=== PATIENT | male | born 1940 | race Caucasian/White ===

== ENCOUNTER 2019-12-01 09:25 | Outpatient (CLI) | payer MEDICARE, BC ==
--- NOTE | 2019-12-01 11:50 | ULT ---
HEPATIC ULTRASOUND: Date: 12/01/2019 HISTORY: Cirrhosis. FINDINGS: Real-time imaging of the liver shows heterogeneous appearance of the liver which measures approximate ly 18.0 cm in length. No focal masses. The gallbladder is normal. Common duct is in the 5.0 mm range. Negative ultrasound Mao's sign. DOPPLER EVALUATION WITH SPECTRAL ANALYSIS: Normal flow patterns are shown within the liver. The spleen is enlarged at 17.5 cm. IMPRESSION: 1. Heterogeneous liver echotexture without focal mass. 2. Splenomegaly. POS: [facility]
== END 2019-12-01 09:26 | disposition home or self-care (01) ==
LOC: BICULT 09:25
PROVIDERS: ATTEND Internal Medicine
DX: K74.60 Unspecified cirrhosis of liver (principal); R16.1 Splenomegaly, not elsewhere classified
CPT/HCPCS: 76705

== ENCOUNTER 2020-05-09 14:33 | Inpatient (IN) | payer MEDICARE, BC, OTHER ==
[~2020-05-09 14:33] MED LIST: EPHEDRINE 25 MG/5 ML SYRINGE ONE; Iopamidol-370 76% 500 ML 1 ML ONE; Lidocaine 1% PF 5 ML VIAL ONE; PHENYLEPHRINE-NS 100 MCG/ML 10 ML SYRINGE ONE; PROPOFOL 200 MG/20 ML VIAL ONE; Succinylcholine Chloride 20 MG/ML 10 ml SYRINGE FS ONE
[2020-05-09] MEDS ORDERED: Ondansetron PF 4 MG/2 ML Vial ONE (15:04)
[2020-05-09 15:18] LABS: #Basophils 0.1 thou/uL (0.0-0.2); #Eosinphils 0.2 thou/uL (0.0-0.7); #Lymphocytes 0.9 thou/uL (1.20-3.40); #Monocytes 0.5 thou/uL (0.11-0.59); #Neutrophils 6.1 thou/uL (1.40-6.50); %Basophils 0.9 % (0.0-1.0); %Eosinophils 2.4 % (0.0-10.0); %Lymphocytes 11.8 % (21.0-51.0); %Monocytes 6.1 % (0.0-10.0); %Neutrophils 78.9 % (42.0-75.0); INR-International Normal Ratio 1.5; Mean Corpuscular HGB CONC 34.2 g/dL (32.0-36.0); Mean Corpuscular Hemoglobin 35.9 pg (27.0-31.0); Mean Platelet Volume 9.1 fL (7.4-10.4); PTT 29.7 sec (22.9-36.1); Platelet Count 84 thou/uL (130-400); Red Blood Cell (RBC) Count 3.08 mill/uL (4.70-6.10); White Blood Cell (WBC) Count 7.8 thou/uL (4.8-10.8)
[2020-05-09 15:25] LABS: MDiff Complete? YES; Macrocytosis SLIGHT = 6-15 cells (100X) (0-5/hpf); Platelet Morphology Comment Appears Decreased; Polychromasia SLIGHT = 2-3 cells (100X) (0-2/hpf)
[2020-05-09 15:26] LABS: Bilirubin Negative (Negative); Blood, Urine Negative (Negative); Clarity Clear (Clear); Glucose, Urine (Dipstick) Normal (Negative); Ketone, Urine Negative (Negative); Leukocyte Negative Leu/uL (Negative); Nitrite Negative (Negative); Protein, Urine (Dipstick) Negative (Neg-Trace); Specific Gravity, Urine 1.026 (1.002-1.036); Urobilinogen Normal mg/dL (Less than 2); pH, Urine 5.5 (5.0-9.0)
[2020-05-09] MEDS ORDERED: Pantoprazole 40 MG VIAL ONE (15:30)
[2020-05-09 15:35] LABS: ALT (SGPT) 29 U/L (8-55); AST (SGOT) 34 U/L (5-34); Albumin 3.3 g/dL (3.4-4.8); Alkaline Phosphatase 71 U/L (40-110); Anion Gap 15 mmol/L (10-20); BUN (Urea Nitrogen) 62 mg/dL (8.4-25.7); Bilirubin, Total 1.5 mg/dL (0.2-1.2); Calc. Creatinine Clearance 0 mL/min (70-130); Calcium 8.6 mg/dL (7.8-10.44); Carbon Dioxide 21 mmol/L (23-31); Chloride 112 mmol/L (98-107); Estimated GFR-MDRD 66; Globulin 2.6 g/dL (2.4-3.5); Glucose 112 mg/dL (83-110); Potassium 4.8 mmol/L (3.5-5.1); Protein, Total 5.9 g/dL (5.8-8.1); Sodium 143 mmol/L (136-145)
--- NOTE | 2020-05-09 15:35 | RAD ---
Exam: Chest one view HISTORY:Blood in stool. Vomiting. Hypotension Comparison: None FINDINGS: Cardiac silhouette: Normal Aorta: Atherosclerosis Pulmonary vessels: Normal Costophrenic angles: Clear LUNGS: No masses or consolidation. Patchy interstitial opacities are presumed be chronic. Pneumothorax: None Osseous abnormalities: None IMPRESSION: 1. Atherosclerosis 2. No acute cardiopulmonary process.
[2020-05-09] MEDS ORDERED: Pantoprazole 80 MG, Admixture Fee 1 EACH in Sodium Chloride 0.9% 100 ML IVPB SCH (15:45)
--- NOTE | 2020-05-09 16:13 | CT ---
EXAM: CT ABDOMEN AND PELVIS HISTORY: Blood in stools. Vomiting. COMPARISON: Stone protocol CT 03/15/2008 Procedure: Multiple contiguous axial images were obtained and a CT of the abdomen and pelvis with IV contrast. C oronal reformats were performed. FINDINGS: Lower Chest: within normal limits. Vessels: Normal caliber aorta. No periaortic stranding Heart: Normal heart size. No significant pericardial Abdomen: Portal vein:Patent. There does appear to be edema along the proximal portal vein as well as the proxi mal superior mesenteric vein as it joins to form the portal vein. Gallbladder: Mild pericholecystic fluid in the gallbladder fundus Liver: Nodularity liver, compatible with cirrhotic change. There are no enhancing masses within the l iver. Pancreas: within normal limits. Spleen: within normal limits. Adrenals: Appropriate attenuation and enhancement of the right adrenal gland. There is a hyperdense m ass associated with the left adrenal gland which is developed since the previous examination. Characterization is limited and incomplete. Hyperdense mass measuring 1.8 x 1.7 cm. Kidneys: Symmetric enhancement. Bilaterally no obstructive uropathy. Nonobstructing calculus in the l eft renal pelvis measures 0.6 cm. Peritoneum: There is nonspecific stranding of the abdominal mesentery suggesting mesenteric edema. Th ere is hypervascularity within the mesentery. The central abdominal mesentery also demonstrates stranding. Positive mesenteric lymphadenitis is raised. The possibility of vascular congestion in the mesentery cannot be excluded. There are extensive gastroesophageal and splenic varices. Bowel: Limited evaluation by the lack of oral contrast. There is fluid and ingested material in the g astric cardia. There is mild fullness of the gastric pylorus. Duodenum and small bowel loops have an overall normal caliber. Normal ileocecal junction. Normal caliber appendix. Colon is decompressed. Scattered diverticulosis. No evidence of diverticulitis. Mucosal thickening involving the distal descending colon and sigmoid colon is felt to be due to inadequate distention.. Mesentery and Retroperitoneum: No enlarged mesenteric or retroperitoneal lymph nodes. Abdominal Wall: within normal limits. Pelvis: Reproductive Organs: Mild enlarged prostate gland. Mass effect upon the floor of the urinary bladder. Pelvis: No mass, lymphadenopathy, free air or free fluid. Bladder: No intravesicular calculi . Bones: Multilevel degenerative changes of the lumbar spine. IMPRESSION: 1. Cirrhosis. 2. Gastroesophageal varices. 3. Stranding of the abdominal mesentery with increased vascularity. Correlate for mesenteric lymphade nitis/venous congestion. 4. Nonspecific edema involving the gastric pylorus. 5. Nonspecific fluid in the gallbladder fossa, at the level of the gallbladder fundus 6. Diverticulosis, without evidence of diverticulitis. Mucosal thickening of the left hemicolon is pr esumed to be due to inadequate distention. The appropriate clinical setting, mucosal-based pathology cannot be excluded. Nonemergent colonoscopy if clinically warranted. 7. Enhancing mass involving the left adrenal gland, incompletely evaluated. Transcribed Date/Time: 05/09/2020 4:20 PM
[2020-05-09] MEDS ORDERED: Octreotide Acetate 100 MCG/ML VIAL ONE (18:31)
[2020-05-09] MEDS ORDERED: cefTRIAXone\\ROCEPHIN 1 GM VIAL ONE (18:32)
[2020-05-09] MEDS ORDERED: Octreotide Acetate 1,250 MCG in Sodium Chloride 0.9% 250 ML 250 ML IVPB SCH (19:00)
[2020-05-09] MEDS ORDERED: Fentanyl 100 MCG/2 ML VIAL ONE (19:12)
[2020-05-09 20:09] LABS: SARS-CoV-2 NAA Rapid Test Not Detected (NotDetected)
--- NOTE | 2020-05-09 20:14 | CON ---
DATE OF CONSULTATION: 05/09/2020 REASON FOR CONSULTATION: Hematemesis, melena. CONSULTING PROVIDER: Holly Salvador NP. HISTORY OF PRESENT ILLNESS: The patient is a 79-year-old male with past medical history of osteoarthritis, hypertension, nephrolithiasis, and cirrhosis of the liver with no previous complications, presenting with complaints of hematemesis and melena. He states that he was in his usual state of health until approximately 2 days ago after eating breakfast, felt general GI discomfort all day. At 3:00 a.m. the following morning, he had nausea and vomiting of a small amount of dark colored phlegm, but continued to have the GI discomfort. Later that morning, he did have the sensation that he needed to have a bowel movement, that awoke him from sleep, at which point he had a dark/black liquid stool that recurred approximately 2 to 3 hours later. Later on that morning, he then experienced hematemesis, characterized as bright red blood and that ultimately brought him into the ER for further evaluation. When evaluated in the ER, he was noted to be hypotensive and tachycardic, but responded favorably to infusion of 1 L of IV fluid with return of his blood pressure to more normal. Upon speaking with the patient today, he denies any new medications nor has he taken any NSAIDs within the last 6 months. He also adds that this has never happened before, and currently denies any fevers, chills, hematochezia, dysphagia, odynophagia, constipation, weight loss, lower extremity edema, ascites, encephalopathy, or jaundice. REVIEW OF SYSTEMS: A 10-category review of systems was obtained with all responses negative except for the pertinent positives as listed in HPI. PAST MEDICAL HISTORY: As per HPI. PAST SURGICAL HISTORY: 1. Abdominal wall hernia repair. 2. Liver biopsy. 3. Colonoscopy. FAMILY HISTORY: Mother diagnosed with colon cancer. SOCIAL HISTORY: Denies any tobacco, alcohol, or illicit drug use. OUTPATIENT MEDICATIONS: 1. Doxazosin 4 mg daily. 2. Lisinopril and hydrochlorothiazide 20 mg/12.5 mg daily. 3. Niacinamide 500 mg daily. ALLERGIES: NO KNOWN DRUG ALLERGIES. PHYSICAL EXAMINATION: VITAL SIGNS: Temperature not recorded, pulse 118, blood pressure 128/65, respiratory rate 14, and saturating 100% on room air. GENERAL: The patient was lying in bed, in no acute distress. Alert and oriented x4. HEENT: Normocephalic and atraumatic. Neck is supple. No JVD or scleral icterus noted. CARDIOVASCULAR: Tachycardic rate, but regular rhythm. No discernable murmurs, gallops, or rubs. RESPIRATORY: Clear to auscultation bilaterally with no discernable wheezes or rales. ABDOMEN: Normoactive bowel sounds. Soft and nondistended. Mild tenderness to palpation in the right upper quadrant and midepigastric regions. EXTREMITIES: No cyanosis, clubbing, or edema. LABORATORY DATA: CBC with a white blood cell count of 7.8, hemoglobin 11, hematocrit 32.3, and platelets 84. INR 1.5. Chemistry with a sodium of 143, potassium 4.8, chloride 112, CO2 of 21, BUN 62, creatinine 1.08, and glucose 112. AST 34, ALT 29, alkaline phosphatase 71, total bilirubin 1.5, and albumin 3.3. Urinalysis normal. IMAGING DATA: CT of the abdomen and pelvis was obtained on 05/09/2020, which showed some edema along the proximal portal vein as well as the proximal superior mesenteric vein as it joins to form the portal vein. There was some mild pericholecystic fluid in the gallbladder fundus, but no overt evidence of cholecystitis. A nodular liver was also seen, compatible with cirrhotic change, but no enhancing masses within the liver itself. A hyperdense mass measuring 1.8 x 1.7 cm was seen in the left adrenal gland, which has developed since prior examination. There was also nonspecific stranding of the abdominal mesentery, suggesting mesenteric edema and hypervascularity within the mesentery. There were also extensive gastroesophageal and splenic varices noted within the gastric cardia. There was fluid and ingested material seen with mild fullness of the gastric pylorus. Scattered diverticulosis without evidence of diverticulitis was also seen. ASSESSMENT AND PLAN: The patient is a 79-year-old male with past medical history of nephrolithiasis, hypertension, osteoarthritis, and cirrhosis of the liver (previously compensated) presenting with hematemesis and melena, concerning for an upper gastrointestinal bleed. 1. Upper gastrointestinal bleed: The patient is presenting with a history of cirrhosis based on cirrhotic morphology on imaging, thrombocytopenia, splenomegaly, and a FibroSURE with F4 fibrosis. At this time, the most likely etiology for his cirrhosis was nonalcoholic fatty liver disease and had previously had compensated disease at his most recent outpatient clinic with MELD score of 10 and Child-Bustos class A classification in 12/2019. He did undergo liver biopsy around 20 years ago, but unfortunately the liver biopsy results have not been available for review. He has never had an esophagogastroduodenoscopy before and was actually being set up for screening upper endoscopy for screening for varices when COVID-19 hit and was deferred until a later day prior to progressing. However, now the patient is presenting with hematemesis, characterized as bright red blood in addition to melenic type stools, which is concerning for an upper gastrointestinal bleeding process. At this point in time, the differential could include an esophageal varix bleed, esophagitis, gastritis, peptic ulcer disease, arteriovenous malformation, Dieulafoy lesion, and/or gastrointestinal neoplasm (less likely). Recommendations: a. Would continue to trend his hemoglobin and hematocrit and transfuse as necessary to maintain the hemoglobin and hematocrit of 7/21. b. Continue to monitor clinically for signs of active GI bleeding. c. Would place the patient on PPI drip and octreotide drip in light of possible variceal bleeding. d. Would place the patient on ceftriaxone 2 g daily in light of bleeding in a cirrhotic patient. e. Would keep the patient n.p.o. in anticipation of EGD. f. Would plan for EGD later on tonight for further evaluation and further recommendations to follow. 2. Cirrhosis: Again, the patient is presenting with a history of cirrhosis with most likely etiology being nonalcoholic fatty liver disease and previously with compensated disease with a MELD score of 10 and Child-Bustos classification A. right upper quadrant ultrasound obtained on 12/01/2019, showed no evidence of hepatoma, and repeat CT scan obtained during this admission also did not show any evidence of hepatocellular carcinoma. His last colonoscopy was performed in 2012 with normal findings per the patient, although the records are unavailable for review with recommendations to repeat in 10 years. Recommendations: a. Would proceed with the workup related to the upper GI bleeding as above. b. The patient will need repeat imaging of the liver in 6 months for screening for HCC. c. Would plan for colonoscopy in 3 years as part of screening for colorectal cancer. d. No acute interventions are indicated at this time. We will continue to follow. Please call with any questions. Job ID: [id number]
[2020-05-09] MEDS ORDERED: Promethazine HCl 25 MG/ML VIAL SLOW IVP PRN (22:05)
[2020-05-09] MEDS ORDERED: Promethazine HCl 25 MG/ML VIAL IM PRN (22:05)
[2020-05-09] MEDS ORDERED: Ondansetron HCl/PF 4 MG/2 ML Vial IVP PRN (22:05)
[2020-05-09] MEDS: Sodium Chloride 0.9% 1,000 ML IV SCH (23:20)
[2020-05-10 00:09] LABS: Band 10 % (5-11); Eosinophils 1 % (0-10); Hemoglobin 9.7 g/dL (14.0-18.0); Lymphocytes 18 % (21-51); MDiff Complete? YES; Mean Corpuscular HGB CONC 33.3 g/dL (32.0-36.0); Mean Corpuscular Hemoglobin 35.2 pg (27.0-31.0); Mean Platelet Volume 8.8 fL (7.4-10.4); Monocytes 3 % (0-10); Neutrophil 68 % (42-75); Platelet Count 75 thou/uL (130-400); Platelet Morphology Comment Appears Decreased; RBC Distribution Width 13.2 % (11.5-14.5); Red Blood Cell (RBC) Count 2.75 mill/uL (4.70-6.10); White Blood Cell (WBC) Count 6.7 thou/uL (4.8-10.8)
--- NOTE | 2020-05-10 01:04 | HP ---
REASON FOR ADMISSION: Hematemesis. HISTORY OF PRESENT ILLNESS: This is a 79-year-old male patient who 24 hours ago ate breakfast, then started to not feeling well. He went early to bed and woke up. Initially, he coughed up something that looked like dark material, then moved his bowels, and his stools were very dark. He was advised in the past by his primary care physician that if this occurs, then that means that he is having gastrointestinal bleed, the patient then vomited red blood, and this occurred a total of three episodes, the last episode was approximately 4 hours ago. In the emergency room, his vomitus was still red but a bit darker than before. The patient denies abdominal pain. Denies using NSAIDs or aspirin. PAST MEDICAL HISTORY: 1. 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 2. High triglyceride. 3. Status post double hernia repair. SOCIAL HISTORY: He rarely drinks alcohol. He does not smoke. FAMILY HISTORY: Negative for premature coronary artery disease. ALLERGIES: HE IS NOT KNOWN TO HAVE ANY DRUG ALLERGIES. REVIEW OF SYSTEMS: All systems reviewed except the above mentioned nausea, vomiting, found to be negative. PHYSICAL EXAMINATION: GENERAL: Awake, alert, oriented, does not appear in distress. VITAL SIGNS: His blood pressure is 108/59, heart rate of 118, saturating 97% on room air. HEENT: Head is nontraumatic, normocephalic. Pupils are equal and reactive. Extraocular movements are intact. Nonicteric sclerae. Well-injected conjunctivae. Oral mucosa normal. Nasal mucosa normal. NECK: Supple. No adenopathy. No murmur. Thyroid is not palpable. Trachea is midline. No supraclavicular adenopathy. HEART: S1 and S2. Regular. No murmur. No gallops. No friction rubs. No displacement of PMI. LUNGS: Clear to auscultation bilaterally. No wheezes. No rhonchi or crackles. ABDOMEN: Bowel sounds are positive. Nontender abdomen. No hepatosplenomegaly. EXTREMITIES: No lower extremity edema. No cyanosis. NEURO: Cranial nerves 2 through 12 within normal limits. Normal motor function. Normal sensory function. Normal reflexes. LABORATORY DATA: Blood work shows a WBC of 7.8, hemoglobin of 11, and platelets of 84. No previous labs to compare with. INR 1.5. Sodium 143, potassium 4.8, bicarb 21, BUN 62, creatinine of 1.08. Urinalysis negative for infection. Abdominal CT scan shows cirrhosis, gastroesophageal varices, stranding of the abdominal mesentery with increased vascularity, correlates for mesenteric lymphadenitis/venous congestion, nonspecific edema involving the gastric pylorus. Nonspecific fluid in the gallbladder fossa. Diverticulosis without evidence of diverticulitis. Enhancing mass involving the left adrenal gland, incompletely evaluated. Chest x-ray shows . ASSESSMENT AND PLAN: This is a 79-year-old male patient presenting for hematemesis. He is known to have liver cirrhosis. Most likely, he does have portal hypertension and esophageal varices. He will be going soon to undergo an EGD. Meanwhile, he is on an octreotide drip, also Protonix drip, and he did receive Rocephin, so we will continue with these medications, and we will continue doing serial H and H with transfusion as needed. We will continue with keeping him n.p.o. on IV fluids. For DVT prophylaxis, he will be on SCDs. For the incidental finding of an adrenal mass on CT scan, I will let the patient know about this finding. This needs to be followed up most likely as an outpatient by his primary care physician. Job ID: [id number]
--- NOTE | 2020-05-10 01:49 | OP ---
DATE OF PROCEDURE: 05/09/2020 INDICATION FOR PROCEDURE: Hematemesis, melena. PROCEDURE: Esophagogastroduodenoscopy with control of hemorrhage, band ligation x3. DESCRIPTION OF PROCEDURE: After the risks and benefits of the procedure were explained to the patient including risks of bleeding, infection, perforation, reactions to anesthesia, aspiration and/or pain, informed consent was obtained. The patient was then taken to the endoscopy suite where general anesthesia was administered with endotracheal tube intubation. Once the patient was intubated and sedated, he was maneuvered into the left lateral decubitus position, followed by introduction of the standard gastroscope, which was then advanced into the esophagus, stomach, and the proximal small intestines with the findings listed below. The patient tolerated the procedure well with no immediate perioperative complications. Upon conclusion of the procedure, all equipment was removed from the patient and he was transferred to PACU in satisfactory condition. FINDINGS: Esophagus: Normal-appearing mucosa was seen in the proximal and mid esophagus, however, in the distal esophagus, one medium to large grade 2/3 esophageal varix was seen with no evidence of active or recent bleeding. However, along the length of it, there was what appeared to be a red beverly sign at which point, band ligation x3 was performed with good flattening the varix afterwards. A small linear erosion was also seen at the gastroesophageal junction that was mildly oozing blood, consistent with a Vielka-Hernandez tear. This was intervened upon with bipolar cauterization with good hemostasis achieved. Otherwise, there was no evidence of ulcerations, mass lesions, or active bleeding seen in the distal esophagus. Stomach: A large amount of retained food and clotted blood was seen in the gastric cardia, fundus, and the proximal body significantly limiting visualization of the gastric mucosa. Despite efforts to irrigate and suction as much this out, approximately 80% of the gastric mucosa could only be visualized of the mucosa seen, mildly increased mucosal erythema was seen throughout the entire stomach in a mosaic-type pattern, but did not exhibit any erosions, ulcerations, mass lesions, or active/recent bleeding. There was no evidence of gastric varices on gastric retroflexion, although this was somewhat obscured by the amount of retained clotted blood. Duodenum: Mildly nodular mucosa was seen within the duodenal bulb and within the second portion of the duodenum, but there was no evidence of erosions, ulcerations, mass lesions, or active/recent bleeding. A mild amount of retained clotted and older blood was seen in the duodenum that was successfully irrigated and suctioned out with no underlying abnormalities. IMPRESSION: 1. A large amount of retained clotted blood and food seen within the gastric cardia, fundus, and proximal body limiting visualization but no evidence of gastric varices. 2. A small 3 to 4 mm linear erosion/tear seen at the gastroesophageal junction consistent with a mildly oozing Vielka-Hernandez tear, status post bipolar cauterization. 3. A large (grade 2/3) esophageal varix seen in the distal esophagus with no evidence of active or recent bleeding but did display a red beverly sign along one aspect of it, now status post band ligation x3. 4. Nodular-appearing mucosa within the duodenal bulb and second portion of the duodenum with indeterminate significance. 5. [id number] portal hypertensive gastropathy. RECOMMENDATIONS: 1. Would continue to trend the patient's H and H and transfuse as necessary to maintain an H and H of 7/21. 2. Continue to monitor clinically for signs of active GI bleeding. 3. We will continue the patient on a PPI and octreotide drip for the next 24 hours, then discontinue the PPI to b.i.d. dosing but would continue the octreotide for a total duration of therapy of 72 hours. 4. Continue the patient on ceftriaxone 1 g q.24 as part of prophylaxis for infection in a cirrhotic patient with bleeding. 5. If the patient continues to have decrease in his H and H, then I would consider repeat upper endoscopy for further evaluation, but with metoclopramide prior to the procedure to help clear the stomach and allow for more adequate visualization. We will continue to follow. Please call with any questions. Job ID: [id number]
[2020-05-10 03:45] LABS: Band 4 % (5-11); Eosinophils 2 % (0-10); Hemoglobin 9.5 g/dL (14.0-18.0); Lymphocytes 3 % (21-51); MDiff Complete? YES; Mean Corpuscular HGB CONC 33.6 g/dL (32.0-36.0); Mean Corpuscular Hemoglobin 35.4 pg (27.0-31.0); Mean Platelet Volume 8.7 fL (7.4-10.4); Metamyelocyte 1 % (0-0); Monocytes 3 % (0-10); Neutrophil 87 % (42-75); Platelet Count 71 thou/uL (130-400); Platelet Morphology Comment Appears Decreased; RBC Distribution Width 13.1 % (11.5-14.5); Red Blood Cell (RBC) Count 2.68 mill/uL (4.70-6.10); White Blood Cell (WBC) Count 7.6 thou/uL (4.8-10.8)
[2020-05-10 03:56] LABS: Anion Gap 15 mmol/L (10-20); BUN (Urea Nitrogen) 52 mg/dL (8.4-25.7); Calc. Creatinine Clearance 87 mL/min (70-130); Carbon Dioxide 20 mmol/L (23-31); Chloride 114 mmol/L (98-107); Estimated GFR-MDRD 76; Glucose 86 mg/dL (83-110); Potassium 4.4 mmol/L (3.5-5.1); Sodium 145 mmol/L (136-145)
[2020-05-10 09:52] LABS: Band 1 % (5-11); Eosinophils 2 % (0-10); Hemoglobin 9.3 g/dL (14.0-18.0); Lymphocytes 10 % (21-51); MDiff Complete? YES; Macrocytosis SLIGHT = 6-15 cells (100X) (0-5/hpf); Mean Corpuscular HGB CONC 33.1 g/dL (32.0-36.0); Mean Corpuscular Hemoglobin 35.3 pg (27.0-31.0); Mean Platelet Volume 9.1 fL (7.4-10.4); Monocytes 5 % (0-10); Neutrophil 81 % (42-75); Platelet Count 73 thou/uL (130-400); Platelet Morphology Comment Appears Decreased; RBC Distribution Width 13.4 % (11.5-14.5); Red Blood Cell (RBC) Count 2.62 mill/uL (4.70-6.10); White Blood Cell (WBC) Count 7.7 thou/uL (4.8-10.8)
[2020-05-10] MEDS: Sodium Chloride 0.9% 1,000 ML IV SCH (10:32)
[2020-05-10 15:03] LABS: Hemoglobin 9.5 g/dL (14.0-18.0); Mean Corpuscular HGB CONC 34.2 g/dL (32.0-36.0); Mean Corpuscular Hemoglobin 36.1 pg (27.0-31.0); Mean Platelet Volume 9.5 fL (7.4-10.4); Platelet Count 87 thou/uL (130-400); RBC Distribution Width 13.7 % (11.5-14.5); Red Blood Cell (RBC) Count 2.63 mill/uL (4.70-6.10); White Blood Cell (WBC) Count 8.6 thou/uL (4.8-10.8)
[2020-05-10 15:24] LABS: Band 2 % (5-11); Eosinophils 6 % (0-10); Lymphocytes 19 % (21-51); MDiff Complete? YES; Macrocytosis SLIGHT = 6-15 cells (100X) (0-5/hpf); Monocytes 4 % (0-10); Neutrophil 68 % (42-75); Ovalocytes SLIGHT = 2-5 cells (100X) (0-1/hpf); Platelet Morphology Comment Appears Decreased; Polychromasia SLIGHT = 2-3 cells (100X) (0-2/hpf); Reactive Lymphocytes 1 % (0-10); Schistocytes SLIGHT = 2-5 cells (100X) (0-1/hpf)
--- NOTE | 2020-05-10 16:26 | PDOC.HOSPP ---
- Subjective Encounter Date: 05/10/20 Encounter Time: 08:00 Subjective: no overnight evnets. this morning, feeling well, endorses small bowel movement with some blackish color, improved. no hematemesis - Objective Vital Signs & Weight: Vital Signs (12 hours) Temp 05/10/20 15:42 99.3 F 05/10/20 07:37 99.5 F Weight Weight 209 lb 6.4 oz Most Recent Monitor Data Heart Rate from ECG 92 NIBP 133/95 NIBP BP-Mean 107 Respiration from ECG 19 SpO2 100 I&O: 05/09/20 05/10/20 05/11/20 06:59 06:59 06:59 Intake Total 767 Output Total 975 Balance -975 767 Result Diagrams: 05/10/20 14:18 05/10/20 03:13 Hospitalist ROS - Review of Systems Constitutional: denies: fever, chills, sweats Respiratory: denies: cough, shortness of breath Cardiovascular: denies: chest pain, palpitations, orthopnea Gastrointestinal: denies: nausea, vomiting, abdominal pain, diarrhea Genitourinary: denies: dysuria, hematuria - Medication Medications: Active Medications Generic Name Dose Route Start Last Admin Trade Name Freq PRN Reason Stop Dose Admin Sodium Chloride 1,000 mls @ 75 mls/hr 05/09/20 20:30 05/10/20 10:32 Normal Saline 0.9% IV 1,000 mls .[id number] ZAK Administration Thiamine HCl 100 mg/ Sodium 51 mls @ 100 mls/hr 05/10/20 09:00 05/10/20 10:24 Chloride IVPB 51 mls Q24HR ZAK Administration - Exam General Appearance: NAD, awake alert Neck: no JVD Heart: RRR, no murmur, no gallops, no rubs Respiratory: CTAB, no wheezes, no rales, no ronchi Gastrointestinal: soft, non-tender, non-distended, normal bowel sounds Psychiatric: normal affect, normal behavior, A&O x 3 Hosp A/P - Plan #cirrhosis #nonalcoholic steatohepatitis #portalHTN #[id number] portal hypertensive gastropathy -POD 1 s/p mark anthony levine s/p cauterization, esophagial varix s/p band ligation x 3 -H&H stable, no additional episodes of hematemesis -continue PPI and octreotide as per GI -continue PPx ABx -MELD 10, Bustos A #adrenal incidentaloma overnight dexamethasone metanephrines Full code GI PPx: on therapeutic PPI DVT PPx: SCDs
[2020-05-10] MEDS: cefTRIAXone\\ROCEPHIN 1 GM in Sodium Chloride 0.9% 100 ML IVPB SCH (17:47)
[2020-05-10] MEDS: Folic Acid 0.4 MG in Pre-Filled Syringe 1 EACH SC SCH (17:47)
--- NOTE | 2020-05-10 19:45 | PRG ---
DATE OF SERVICE: 05/10/2020 REASON FOR CONSULTATION: Hematemesis, melena, esophageal varices. SUBJECTIVE: Today, the patient states that he is doing well with no acute events or problems overnight. Currently, he states that he feels good with no nausea, vomiting, fevers, chills, hematemesis, hematochezia, or abdominal pain. He has had some darker colored bowel movements this morning, but were small volume and semi-solid liquid in consistency. OBJECTIVE: VITAL SIGNS: Temperature 99.3, pulse 92, blood pressure 133/95, respiratory rate 19, saturating 100% on room air. GENERAL: The patient is lying in bed, in no acute distress. Alert and oriented x4. CARDIOVASCULAR: Regular rate and rhythm. RESPIRATORY: Clear to auscultation bilaterally. ABDOMEN: Normoactive bowel sounds. Soft, nontender, nondistended. EXTREMITIES: No cyanosis, clubbing, or edema. LABORATORY DATA: CBC with a white blood cell count of 7.7, hemoglobin 9.3, hematocrit 27.9, platelets 73. Chemistry with a sodium of 145, potassium 4.4, chloride 114, CO2 of 20, BUN 52, creatinine 0.96, glucose 86. IMAGING DATA: The patient underwent upper endoscopy on May 09, 2020, with the findings of a significant amount of retained food and clotted blood within the stomach that significantly limited visualization of the gastric mucosa. With aggressive irrigation and suctioning, approximately 80% of the gastric mucosa was able to be adequately seen with no etiology for bleeding seen in those regions. However, upon careful evaluation of the distal esophagus, there was one small area of mild oozing of blood consistent with a possible Vielka-Hernandez tear that was intervened upon with bipolar cauterization, but most likely not the source of his recent hematemesis. One large varix was seen in the distal esophagus as well, but no clear evidence of high-risk stigmata of bleeding. However, given his recent hematemesis and the higher likelihood of being a variceal bleed, this varix underwent band ligation x3 with good hemostasis at the end of the maneuver. ASSESSMENT AND PLAN: The patient is a 79-year-old male with past medical history of nephrolithiasis, hypertension, osteoarthritis, and cirrhosis of the liver, initially presenting with hematemesis and melena, most likely secondary to acute variceal bleed. 1. Upper gastrointestinal bleed/variceal bleeding. The patient initially presented with acute onset of hematemesis and melena with a decrease in his pressure and tachycardia indicative of a significant gastrointestinal bleed. He subsequently underwent EGD on May 09, 2020, with a lot amount of retained food and blood within the stomach limiting visualization. However, with irrigation and suctioning, no etiology for his bleeding was obviously seen except for mild oozing of blood from what appeared to be a Vielka-Hernandez tear in the distal esophagus as well as one large varix that was intervened upon with band ligation x3. In the postoperative setting, his H and H have stabilized despite the fact that he has continued to have darker colored bowel movements which were most likely due to the passage of retained clot as seen during the endoscopy yesterday. RECOMMENDATIONS: 1. Would continue to trend his H and H and transfuse as necessary to maintain an H and H of 7/21. 2. Continue to monitor clinically for signs of active GI bleeding. 3. Continue the patient on a PPI drip for total duration of 24 hours, then transfer the patient to 40 mg IV b.i.d. 4. Continue the octreotide drip for total duration of therapy of 72 hours. 5. Continue the patient on ceftriaxone daily as part of infection prophylaxis in a bleeding cirrhotic patient. 6. Advance the diet as tolerated. We will continue to follow. Please call with any questions. Job ID: [id number]
[2020-05-10] MEDS ORDERED: Labetalol HCl 100 MG/20 ML VIAL SLOW IVP PRN (19:49)
[2020-05-10 20:52] LABS: Band 1 % (5-11); Eosinophils 2 % (0-10); Hemoglobin 8.9 g/dL (14.0-18.0); Hypochromia SLIGHT = 6-15 cells (100X) (0-5/hpf); Lymphocytes 15 % (21-51); MDiff Complete? YES; Macrocytosis SLIGHT = 6-15 cells (100X) (0-5/hpf); Mean Corpuscular HGB CONC 34.1 g/dL (32.0-36.0); Mean Corpuscular Hemoglobin 36.2 pg (27.0-31.0); Mean Platelet Volume 8.7 fL (7.4-10.4); Monocytes 12 % (0-10); Neutrophil 70 % (42-75); Platelet Count 69 thou/uL (130-400); Platelet Morphology Comment Appears Decreased; RBC Distribution Width 13.5 % (11.5-14.5); Red Blood Cell (RBC) Count 2.47 mill/uL (4.70-6.10); White Blood Cell (WBC) Count 6.3 thou/uL (4.8-10.8)
[2020-05-10] MEDS: Pantoprazole 40 MG VIAL IVP SCH (22:20)
[2020-05-10] MEDS ORDERED: Dexamethasone 1 MG TAB PO SCH (23:00)
[2020-05-11 06:49] LABS: Anion Gap 10 mmol/L (10-20); BUN (Urea Nitrogen) 36 mg/dL (8.4-25.7); Calc. Creatinine Clearance 83 mL/min (70-130); Calcium 7.8 mg/dL (7.8-10.44); Carbon Dioxide 22 mmol/L (23-31); Chloride 113 mmol/L (98-107); Estimated GFR-MDRD 72; Glucose 115 mg/dL (83-110); Potassium 4.3 mmol/L (3.5-5.1); Sodium 141 mmol/L (136-145)
[2020-05-11 06:51] LABS: Hemoglobin 8.5 g/dL (14.0-18.0); Mean Corpuscular HGB CONC 33.4 g/dL (32.0-36.0); Mean Corpuscular Hemoglobin 35.6 pg (27.0-31.0); Platelet Count 62 thou/uL (130-400); RBC Distribution Width 13.5 % (11.5-14.5); Red Blood Cell (RBC) Count 2.37 mill/uL (4.70-6.10); White Blood Cell (WBC) Count 4.8 thou/uL (4.8-10.8)
[2020-05-11 06:52] LABS: Band 5 % (5-11); Eosinophils 1 % (0-10); Hypochromia SLIGHT = 6-15 cells (100X) (0-5/hpf); Lymphocytes 12 % (21-51); MDiff Complete? YES; Macrocytosis SLIGHT = 6-15 cells (100X) (0-5/hpf); Metamyelocyte 1 % (0-0); Monocytes 2 % (0-10); Neutrophil 79 % (42-75); Platelet Morphology Comment Appears Decreased
[2020-05-11] MEDS: Folic Acid 0.4 MG in Pre-Filled Syringe 1 EACH SC SCH (08:01)
[2020-05-11] MEDS: Pantoprazole 40 MG VIAL IVP SCH ×2 (08:02→20:10)
[2020-05-11] MEDS: Sodium Chloride 0.9% 1,000 ML IV SCH ×3 (08:11→20:11)
[2020-05-11] MEDS: Lisinopril/Hydrochlorothiazide 20 mg/12.5 mg Tablet PO SCH (09:49)
--- NOTE | 2020-05-11 12:22 | PDOC.HOSPP ---
- Subjective Encounter Date: 05/11/20 Encounter Time: 10:30 Subjective: no bm after hospitalization no abd pain or nausea is tolerating liq diet is amb in room - Objective Vital Signs & Weight: Vital Signs (12 hours) Temp Pulse Resp BP BP BP Pulse Ox 05/11/20 09:49 76 109/56 L 05/11/20 08:00 95 05/11/20 07:45 98.3 F 76 20 109/56 L 95 05/11/20 04:00 98.2 F 88 20 160/70 H 94 L Weight Weight 209 lb 6.4 oz Most Recent Monitor Data Heart Rate from ECG 92 NIBP 133/95 NIBP BP-Mean 107 Respiration from ECG 19 SpO2 100 I&O: 05/10/20 05/11/20 05/12/20 06:59 06:59 06:59 Intake Total 3347 Output Total 975 1800 Balance -975 1547 Result Diagrams: 05/11/20 06:16 05/11/20 06:16 Hospitalist ROS - Medication Medications: Active Medications Generic Name Dose Route Start Last Admin Trade Name Fina PRN Reason Stop Dose Admin Lisinopril/HCTZ 1 tab 05/11/20 09:00 05/11/20 09:49 Prinizide 20-12.5 PO Not Given DAILY ZAK Sodium Chloride 1,000 mls @ 75 mls/hr 05/09/20 20:30 05/11/20 08:11 Normal Saline 0.9% IV 1,000 mls .[id number] ZAK Administration Ceftriaxone Sodium 1 gm/ 100 mls @ 200 mls/hr 05/10/20 18:00 05/10/20 17:47 Sodium Chloride IVPB 100 mls Q24HR ZAK Administration Thiamine HCl 100 mg/ Sodium 51 mls @ 100 mls/hr 05/10/20 09:00 05/11/20 08:00 Chloride IVPB 51 mls Q24HR ZAK Administration Folic Acid 0.4 mg/ 0.08 mls @ 0 mls/hr 05/10/20 09:00 05/11/20 08:01 Miscellaneous Medication SC 0.08 mls DAILY ZAK Administration Pantoprazole Sodium 40 mg 05/10/20 21:00 05/11/20 08:02 Protonix IVP 40 mg BID ZAK Administration - Exam General Appearance: awake alert Eye: PERRL, anicteric sclera ENT: no oropharyngeal lesions, moist mucosa Neck: supple, no JVD Heart: RRR, no murmur Respiratory: no wheezes, no rales, no ronchi Gastrointestinal: soft, non-tender, non-distended, normal bowel sounds Extremities: no cyanosis, no edema Neurological: cranial nerve grossly intact, no focal deficits Psychiatric: normal affect, A&O x 3 Hosp A/P (1) GI bleed Code(s): K92.2 - GASTROINTESTINAL HEMORRHAGE, UNSPECIFIED Status: Acute (2) Cirrhosis Code(s): K74.60 - UNSPECIFIED CIRRHOSIS OF LIVER Status: Chronic (3) HTN (hypertension) Code(s): I10 - ESSENTIAL (PRIMARY) HYPERTENSION Status: Chronic Qualifiers: Hypertension type: essential hypertension Qualified Code(s): I10 - Essential (primary) hypertension (4) Acute blood loss anemia Code(s): D62 - ACUTE POSTHEMORRHAGIC ANEMIA Status: Acute - Plan is on octreotide, protinix bid, liq diet may advance diet per GI advice needs octreotide taper per GI advice continue ceftriaxone, lisinopril with hctz oral iron on discharge hemostable
[2020-05-11] MEDS: cefTRIAXone\\ROCEPHIN 1 GM in Sodium Chloride 0.9% 100 ML IVPB SCH (17:14)
--- NOTE | 2020-05-11 19:10 | PRG ---
DATE OF SERVICE: REASON FOR CONSULTATION: Hematemesis, melena, esophageal varices in light of cirrhosis. SUBJECTIVE: Today, the patient states that he has been doing well with no acute events or problems overnight. He had been able to exercise in his room without difficulty and currently denies any nausea, vomiting, fevers, chills, hematemesis, hematochezia, melena, or abdominal pain. He has not had any bowel movements over the last 12 to 24 hours. OBJECTIVE: VITAL SIGNS: Temperature 97.9, pulse 72, blood pressure 118/67, respiratory rate 18, saturating 97% on room air. GENERAL: The patient was lying in bed, in no acute distress. Alert and oriented x4. CARDIOVASCULAR: Regular rate and rhythm. RESPIRATORY: Clear to auscultation bilaterally. ABDOMEN: Normoactive bowel sounds. Soft, nontender, nondistended. EXTREMITIES: No cyanosis, clubbing, or edema. LABORATORY DATA: CBC with a white blood cell count of 4.8, hemoglobin 8.5, hematocrit 25.3, platelets 62. Chemistry with a sodium of 141, potassium 4.3, chloride 113, CO2 of 22, BUN 36, creatinine 1.0, glucose 115. IMAGING DATA: No current GI imaging is available for review. ASSESSMENT AND PLAN: The patient is a 79-year-old male with past medical history of nephrolithiasis, hypertension, osteoarthritis, and cirrhosis of the liver, presenting with hematemesis and melena secondary to acute variceal bleed. Upper GI bleed/variceal bleeding. The patient initially presented with acute onset of hematemesis and melena with hypotension and tachycardia indicative of a significant GI bleed. He subsequently underwent EGD on May 09, 2020, with a large amount of retained food and blood in the stomach limiting visualization, but with careful examination, it was noted to have what appeared to be a small Vielka-Hernandez tear in the distal esophagus (that was intervened upon with bipolar cauterization) as well as one large varix in the distal esophagus that was intervened upon with band ligation x3. Since these interventions, the patient has not had any further episodes of hematemesis or melena, although he does have a slightly downtrending H and H over the last few days concerning for continued oozing from a possible upper GI bleed. RECOMMENDATIONS: 1. Would continue to trend his H and H and transfuse as necessary to maintain an H and H of 7/. 2. Continue to monitor clinically for signs of active GI bleeding. 3. Would continue the patient on pantoprazole 40 mg IV b.i.d. 4. Continue the octreotide drip for total duration of therapy of 72 hours (would discontinue tomorrow). 5. Continue ceftriaxone daily as part of infection prophylaxis. 6. Advance diet as tolerated. We will continue to follow. Please call with any questions. Job ID: [id number]
[2020-05-12] MEDS: Sodium Chloride 0.9% 1,000 ML IV SCH (02:23)
[2020-05-12 06:10] LABS: #Eosinphils 0.2 thou/uL (0.0-0.7); #Lymphocytes 1.3 thou/uL (1.20-3.40); #Monocytes 0.3 thou/uL (0.11-0.59); #Neutrophils 2.5 thou/uL (1.40-6.50); %Basophils 0.6 % (0.0-1.0); %Eosinophils 4.6 % (0.0-10.0); %Monocytes 7.1 % (0.0-10.0); %Neutrophils 57.8 % (42.0-75.0); Hemoglobin 8.3 g/dL (14.0-18.0); Mean Corpuscular HGB CONC 32.9 g/dL (32.0-36.0); Platelet Count 66 thou/uL (130-400); RBC Distribution Width 13.4 % (11.5-14.5); Red Blood Cell (RBC) Count 2.37 mill/uL (4.70-6.10); White Blood Cell (WBC) Count 4.3 thou/uL (4.8-10.8)
[2020-05-12 07:47] VITALS: BP 160/96; TEMP 97.8
[2020-05-12] MEDS: Folic Acid 0.4 MG in Pre-Filled Syringe 1 EACH SC SCH (08:28)
[2020-05-12] MEDS: Lisinopril/Hydrochlorothiazide 20 mg/12.5 mg Tablet PO SCH (08:28)
[2020-05-12] MEDS: Pantoprazole 40 MG VIAL IVP SCH (08:36)
[2020-05-12] MEDS ORDERED: Propranolol 10 MG TAB PO SCH (09:00)
--- NOTE | 2020-05-12 11:51 | PDOC.HOSPP ---
- Subjective Encounter Date: 05/12/20 Encounter Time: 09:45 Subjective: feels better, no complaints - Objective Vital Signs & Weight: Vital Signs (12 hours) Temp Pulse Resp BP Pulse Ox 05/12/20 08:28 78 05/12/20 08:00 97 05/12/20 07:44 97.8 F 78 16 160/96 H 97 Weight Weight 209 lb 6.4 oz Most Recent Monitor Data Heart Rate from ECG 92 NIBP 133/95 NIBP BP-Mean 107 Respiration from ECG 19 SpO2 100 I&O: 05/11/20 05/12/20 05/13/20 06:59 06:59 06:59 Intake Total 3347 2550 420 Output Total 1800 1780 Balance 1547 770 420 Result Diagrams: 05/12/20 05:39 05/11/20 06:16 Hospitalist ROS - Medication Medications: Active Medications Generic Name Dose Route Start Last Admin Trade Name Freq PRN Reason Stop Dose Admin Lisinopril/HCTZ 1 tab 05/11/20 09:00 05/12/20 08:28 Prinizide 20-12.5 PO 1 tab DAILY ZAK Administration Ceftriaxone Sodium 1 gm/ 100 mls @ 200 mls/hr 05/10/20 18:00 05/11/20 17:14 Sodium Chloride IVPB 100 mls Q24HR AZK Administration Thiamine HCl 100 mg/ Sodium 51 mls @ 100 mls/hr 05/10/20 09:00 05/12/20 08:28 Chloride IVPB 51 mls Q24HR ZAK Administration Folic Acid 0.4 mg/ 0.08 mls @ 0 mls/hr 05/10/20 09:00 05/12/20 08:28 Miscellaneous Medication SC 0.08 mls DAILY ZAK Administration Pantoprazole Sodium 40 mg 05/10/20 21:00 05/12/20 08:36 Protonix IVP 40 mg BID ZAK Administration Propranolol HCl 10 mg 05/12/20 09:00 05/12/20 09:55 Inderal PO 10 mg BID ZAK Administration - Exam General Appearance: awake alert Eye: PERRL, anicteric sclera ENT: no oropharyngeal lesions, moist mucosa Neck: supple, no JVD Heart: RRR, no murmur Respiratory: no wheezes, no rales Gastrointestinal: soft, non-tender, non-distended, normal bowel sounds Extremities: no cyanosis, no edema Neurological: cranial nerve grossly intact, no focal deficits Psychiatric: normal affect, A&O x 3 Hosp A/P (1) GI bleed Code(s): K92.2 - GASTROINTESTINAL HEMORRHAGE, UNSPECIFIED Status: Acute (2) Cirrhosis Code(s): K74.60 - UNSPECIFIED CIRRHOSIS OF LIVER Status: Chronic (3) HTN (hypertension) Code(s): I10 - ESSENTIAL (PRIMARY) HYPERTENSION Status: Chronic Qualifiers: Hypertension type: essential hypertension Qualified Code(s): I10 - Essential (primary) hypertension (4) Acute blood loss anemia Code(s): D62 - ACUTE POSTHEMORRHAGIC ANEMIA Status: Acute - Plan is off octreotide drip from this am, protinix bid, on solid diet continue ceftriaxone, lisinopril with hctz oral iron on discharge hemostable may dc home if ok with GI
--- NOTE | 2020-05-13 14:18 | DIS ---
DATE OF ADMISSION: 05/09/2020 DATE OF DISCHARGE: 05/12/2020 DISCHARGE DISPOSITION: Home. PRIMARY DISCHARGE DIAGNOSIS: Upper GI bleed secondary to Vielka-Hernandez tear and also due to esophageal varices, status post banding. SECONDARY DISCHARGE DIAGNOSES: Acute blood loss anemia, history of cirrhosis, and hypertension. PROCEDURES DONE DURING HOSPITALIZATION: The patient has had upper endoscopy done by Dr. Norbert Philip on 05/09/2020, which showed large amount of retained and clotted blood and food in the gastric cardia, fundus, and proximal body. There was no evidence of gastric varices. A small 3 to 4 mm linear erosion/tear seen at the gastroesophageal junction consistent with a mildly oozing Vielka-Hernandez tear, status post bipolar cauterization. Had a large esophageal varices seen in the distal esophagus with no evidence of active or recent bleeding, but did display red Luis sign, now status post band ligation x3. CT abdomen and pelvis showed findings of cirrhosis, gastroesophageal varices, and diverticulosis. Hemoglobin and hematocrit of 8 and 25 and platelet count 66 on the day of discharge. Admitting hemoglobin and hematocrit were 11 and 32 with platelet count of 84 and MCV is 105. Discharge BUN and creatinine are 36 and 1.0. Vitamin B12 of 799. Folic acid 12.2. Albumin 3.3. Initial BUN and creatinine of 62 and 1.0. COVID-19 PCR was not detected on 05/09/2020. DISCHARGE MEDICATIONS: 1. Protonix 40 mg twice daily for 30 days. 2. Propranolol 10 mg twice daily. 3. Ferrous sulfate 325 mg p.o. daily. 4. Lisinopril with hydrochlorothiazide 20/12.5 mg p.o. daily. 5. Doxazosin 4 mg p.o. daily. ALLERGIES: NO KNOWN DRUG ALLERGIES. DISCHARGE PLAN: The patient to follow up with Dr. Philip in 2 to 3 weeks. He needs to follow up with his primary care physician, Dr. Crawford in 1 week. BRIEF COURSE DURING HOSPITALIZATION: The patient initially got admitted on the 09 of May with complaints of vomiting blood. He also had dark stools. He has known history of cirrhosis. In view of this, the patient was admitted initially to [facility] and was closely monitored. He has had upper endoscopy done. The findings have described above. The patient was on octreotide and Protonix drips initially. His octreotide drip was continued for 72 hours and discontinued. Protonix was transitioned from IV to p.o. at the time of discharge. Prior to discharge, he is tolerating solid food and is ambulating and eating well. He has been cleared by Dr. Philip for discharge. Mr. Simental has been advised to follow up with GI in 2 to 3 weeks and primary care physician in 1 week. Please note, I have seen and examined the patient on the day of discharge. Job ID: [id number]
--- NOTE | 2020-05-18 15:32 | EKG ---
Test Reason : Blood Pressure : / mmHG Vent. Rate : 111 BPM Atrial Rate : 111 BPM P-R Int : 166 ms QRS Dur : 082 ms QT Int : 340 ms P-R-T Axes : 058 014 072 degrees QTc Int : 462 ms Sinus tachycardia Possible Left atrial enlargement Increased R/S ratio in V1, consider early transition or posterior infarct Abnormal ECG Confirmed by ELSI HOLLIDAY DO ([id number]), editorial specialist DEANNE BEAR ([id number]) on 05/18/2020 3:32:38 PM Referred By: Confirmed By:ELSI HOLLIDAY DO
[2020-05-19 20:15] LABS: Metanephrine,Plasma 10.4 pg/mL (0.0-88.0); Normetanephrine,Pl 112.6 pg/mL (0.0-191.8)
== END 2020-05-12 16:55 | disposition home or self-care (01) | DRG 368 ==
LOC: ERS 14:33 → SDC/OP 21:14 → IMCU/EMU 22:43 → T4-B 05-10 17:53
PROVIDERS: ADMIT Internal Medicine; ATTEND Internal Medicine
PROC: 06L38CZ Occlusion of Esophageal Vein with Extraluminal Device, Via Natural or Artificial Opening Endoscopic (ICD-10-PCS; principal; 2020-05-09)
PROC: 0W3P8ZZ Control Bleeding in Gastrointestinal Tract, Via Natural or Artificial Opening Endoscopic (ICD-10-PCS; 2020-05-09)
DX: K22.6 Gastro-esophageal laceration-hemorrhage syndrome (principal); I85.11 Secondary esophageal varices with bleeding; D62 Acute posthemorrhagic anemia; K76.6 Portal hypertension; Z20.828 Contact with and (suspected) exposure to other viral communicable diseases; K75.81 Nonalcoholic steatohepatitis (NASH); E78.1 Pure hyperglyceridemia; K74.60 Unspecified cirrhosis of liver; I10 Essential (primary) hypertension; M19.90 Unspecified osteoarthritis, unspecified site; K31.89 Other diseases of stomach and duodenum; Z79.899 Other long term (current) drug therapy
CPT/HCPCS: 36415; 71045; 74177; 80048; 80053; 81003; 82274; 82533; 82607; 82746; 83735; 83835; 84484; 85007; 85025; 85027; 85610; 85730; 86850; 86900; 86901; 93005; 96361; 96365; 96366; 96368; 96375; 96376; C9113; J0696; J2354; J2405; J2704; J3010; J3411; J3490; J7050; J8540; Q9967; U0002

== ENCOUNTER 2020-09-25 06:49 | Outpatient (CLI) | payer MEDICARE, BC ==
--- NOTE | 2020-09-25 08:56 | ULT ---
Hepatic sonogram with duplex evaluation HISTORY: Cirrhosis. FINDINGS: Gallbladder is incompletely distended. No stones visible. Common duct is 0.3 cm. Liver has a heterogeneous echotexture and nodular contour. No focal mass. Minimal free fluid adjacent to the right liver lobe. Spleen measures up to 20.0 cm. Portal venous flow is towards the liver. Hepatic venous flow towards the IVC. Good color and spectral Doppler flow within the hepatic and splenic arteries. IMPRESSION : Cirrhotic appearance of the liver. Findings of portal venous hypertension include severe splenomegaly and minimal ascites. Appropriate directional portal venous flow.
== END 2020-09-25 06:50 | disposition home or self-care (01) ==
LOC: BICULT 06:49
PROVIDERS: ATTEND Internal Medicine
DX: K74.60 Unspecified cirrhosis of liver (principal); I85.00 Esophageal varices without bleeding; K76.6 Portal hypertension; R16.1 Splenomegaly, not elsewhere classified; R18.8 Other ascites
CPT/HCPCS: 76705

== ENCOUNTER 2021-07-28 10:25 | Outpatient (CLI) | payer MEDICARE, BC ==
[2021-07-28 20:27] LABS: SARS-CoV-2 PCR by NAA Not Detected (NotDetected)
== END 2021-07-28 10:26 | disposition home or self-care (01) ==
LOC: LABBT 10:25
PROVIDERS: ATTEND Internal Medicine
DX: Z01.812 Encounter for preprocedural laboratory examination (principal); Z20.822 Contact with and (suspected) exposure to COVID-19
CPT/HCPCS: U0003; U0005

== ENCOUNTER 2021-10-03 08:53 | Outpatient (CLI) | payer MEDICARE, BC | END 2021-10-03 08:54 | disposition home or self-care (01) | LOC: BICULT 08:53 | PROVIDERS: ATTEND Physician Assistant Medical | DX: K74.60 Unspecified cirrhosis of liver (principal); K72.90 Hepatic failure, unspecified without coma; R16.1 Splenomegaly, not elsewhere classified | CPT/HCPCS: 76705 ==

== ENCOUNTER 2022-02-03 10:03 | Inpatient (IN) | payer MEDICARE, BC ==
[2022-02-03] MEDS ORDERED: Pantoprazole 40 MG VIAL ONE (11:10)
[2022-02-03] MEDS ORDERED: Ondansetron PF 4 MG/2 ML Vial ONE ×2 (11:10→12:44)
[2022-02-03 11:33] LABS: #Eosinphils 0.4 thou/uL (0.0-0.7); #Lymphocytes 0.8 thou/uL (1.20-3.40); #Monocytes 0.5 thou/uL (0.11-0.59); #Neutrophils 9.3 thou/uL (1.40-6.50); %Basophils 0.2 % (0.0-1.0); %Eosinophils 3.4 % (0.0-10.0); %Lymphocytes 7.1 % (21.0-51.0); %Monocytes 4.9 % (0.0-10.0); %Neutrophils 84.3 % (42.0-75.0); Hemoglobin 10.7 g/dL (14.0-18.0); Mean Corpuscular HGB CONC 33.3 g/dL (32.0-36.0); Mean Corpuscular Hemoglobin 36.9 pg (27.0-31.0); Mean Platelet Volume 9.4 fL (7.4-10.4); Platelet Count 79 thou/uL (130-400); RBC Distribution Width 13.4 % (11.5-14.5)
[2022-02-03 11:40] LABS: MDiff Complete? YES; Macrocytosis SLIGHT = 6-15 cells (100X) (0-5/hpf); Platelet Morphology Comment Appears Decreased; Polychromasia SLIGHT = 2-3 cells (100X) (0-2/hpf)
[2022-02-03 11:46] LABS: ALT (SGPT) 40 U/L (8-55); AST (SGOT) 58 U/L (5-34); Albumin 3.3 g/dL (3.4-4.8); Alkaline Phosphatase 86 U/L (40-110); Anion Gap 14 mmol/L (10-20); BUN (Urea Nitrogen) 63 mg/dL (8.4-25.7); Bilirubin, Total 2.1 mg/dL (0.2-1.2); Calc. Creatinine Clearance 0 mL/min (70-130); Carbon Dioxide 19 mmol/L (23-31); Chloride 110 mmol/L (98-107); Globulin 2.8 g/dL (2.4-3.5); Glucose 104 mg/dL (83-110); Potassium 6.2 mmol/L (3.5-5.1); Protein, Total 6.1 g/dL (5.8-8.1); Sodium 137 mmol/L (136-145)
[2022-02-03] MEDS ORDERED: Calcium Chloride 1 GM/10 ML Abboject SYRINGE ONE (12:07)
[2022-02-03] MEDS ORDERED: Insulin Regular 300 UNITS/3 ML VIAL ONE (12:59)
[2022-02-03] MEDS ORDERED: Acetaminophen 325 MG TAB PO PRN (13:39)
[2022-02-03] MEDS ORDERED: hydrALAZINE 20 MG/ML VIAL SLOW IVP PRN (13:39)
[2022-02-03] MEDS ORDERED: Octreotide Acetate 1,250 MCG in Sodium Chloride 0.9% 250 ML 250 ML IVPB SCH (13:45)
[2022-02-03] MEDS ORDERED: LOKELMA 5 GM PACKET PO SCH (14:00)
[2022-02-03 14:18] VITALS: BMI 29.1
[2022-02-03 14:40] LABS: Hemoglobin 9.8 g/dL (14.0-18.0); Platelet Count 78 thou/uL (130-400)
[2022-02-03 15:12] LABS: Anion Gap 11 mmol/L (10-20); BUN (Urea Nitrogen) 62 mg/dL (8.4-25.7); Calc. Creatinine Clearance 69 mL/min (70-130); Calcium 9.6 mg/dL (7.8-10.44); Carbon Dioxide 21 mmol/L (23-31); Chloride 110 mmol/L (98-107); Glucose 119 mg/dL (83-110); Potassium 4.9 mmol/L (3.5-5.1); Sodium 137 mmol/L (136-145)
[2022-02-03 17:46] LABS: Hemoglobin 9.6 g/dL (14.0-18.0); Platelet Count 70 thou/uL (130-400)
[2022-02-03] MEDS: Rifaximin 550 MG TAB PO SCH (21:41)
[2022-02-03 21:42] LABS: Hemoglobin 9.4 g/dL (14.0-18.0); Platelet Count 72 thou/uL (130-400)
[2022-02-03] MEDS: Pantoprazole 40 MG VIAL IVP SCH (21:42)
[2022-02-04 01:41] LABS: Hemoglobin 9.4 g/dL (14.0-18.0); Platelet Count 72 thou/uL (130-400)
[2022-02-04 04:23] LABS: #Eosinphils 0.4 thou/uL (0.0-0.7); #Lymphocytes 1.3 thou/uL (1.20-3.40); #Monocytes 0.7 thou/uL (0.11-0.59); #Neutrophils 7.4 thou/uL (1.40-6.50); %Basophils 0.3 % (0.0-1.0); %Eosinophils 3.6 % (0.0-10.0); %Lymphocytes 13.4 % (21.0-51.0); %Neutrophils 75.8 % (42.0-75.0); Hemoglobin 9.2 g/dL (14.0-18.0); Mean Corpuscular HGB CONC 33.2 g/dL (32.0-36.0); Mean Corpuscular Hemoglobin 37.1 pg (27.0-31.0); Mean Platelet Volume 9.3 fL (7.4-10.4); Platelet Count 77 thou/uL (130-400); RBC Distribution Width 13.6 % (11.5-14.5); Red Blood Cell (RBC) Count 2.49 mill/uL (4.70-6.10); White Blood Cell (WBC) Count 9.8 thou/uL (4.8-10.8)
[2022-02-04 04:24] LABS: INR-International Normal Ratio 1.7; Prothrombin Time 20.2 sec (12.0-14.7)
[2022-02-04 09:37] LABS: ALT (SGPT) 35 U/L (8-55); AST (SGOT) 45 U/L (5-34); Albumin 3.1 g/dL (3.4-4.8); Alkaline Phosphatase 77 U/L (40-110); Anion Gap 11 mmol/L (10-20); BUN (Urea Nitrogen) 63 mg/dL (8.4-25.7); Bilirubin, Total 1.8 mg/dL (0.2-1.2); Calc. Creatinine Clearance 62 mL/min (70-130); Calcium 8.9 mg/dL (7.8-10.44); Carbon Dioxide 22 mmol/L (23-31); Chloride 113 mmol/L (98-107); Globulin 2.5 g/dL (2.4-3.5); Glucose 93 mg/dL (83-110); Potassium 5.3 mmol/L (3.5-5.1); Protein, Total 5.6 g/dL (5.8-8.1); Sodium 141 mmol/L (136-145)
[2022-02-04] MEDS ORDERED: PROPOFOL 200 MG/20 ML VIAL ONE (09:42)
[2022-02-04] MEDS ORDERED: Lidocaine 1% PF 5 ML VIAL ONE (09:42)
[2022-02-04] MEDS ORDERED: PHENYLEPHRINE-NS 100 MCG/ML 10 ML SYRINGE ONE (09:42)
[2022-02-04] MEDS: cefTRIAXone\\ROCEPHIN 1 GM in Sodium Chloride 0.9% 100 ML IVPB SCH (11:28)
[2022-02-04] MEDS: Rifaximin 550 MG TAB PO SCH ×2 (11:28→21:07)
[2022-02-04] MEDS: Pantoprazole 40 MG VIAL IVP SCH ×2 (11:28→21:07)
[2022-02-04 16:32] LABS: #Eosinphils 0.4 thou/uL (0.0-0.7); #Monocytes 0.6 thou/uL (0.11-0.59); #Neutrophils 6.1 thou/uL (1.40-6.50); %Basophils 0.5 % (0.0-1.0); %Eosinophils 4.5 % (0.0-10.0); %Lymphocytes 12.2 % (21.0-51.0); %Monocytes 7.6 % (0.0-10.0); %Neutrophils 75.2 % (42.0-75.0); Hemoglobin 9.1 g/dL (14.0-18.0); Mean Corpuscular HGB CONC 33.7 g/dL (32.0-36.0); Mean Corpuscular Hemoglobin 37.5 pg (27.0-31.0); Mean Platelet Volume 8.3 fL (7.4-10.4); Platelet Count 69 thou/uL (130-400); RBC Distribution Width 13.9 % (11.5-14.5); Red Blood Cell (RBC) Count 2.43 mill/uL (4.70-6.10); White Blood Cell (WBC) Count 8.1 thou/uL (4.8-10.8)
[2022-02-04] MEDS: Octreotide Acetate 1,250 MCG in Sodium Chloride 0.9% 250 ML 250 ML IVPB SCH (18:43)
[2022-02-05 04:43] LABS: #Eosinphils 0.4 thou/uL (0.0-0.7); #Lymphocytes 0.9 thou/uL (1.20-3.40); #Monocytes 0.6 thou/uL (0.11-0.59); #Neutrophils 4.1 thou/uL (1.40-6.50); %Basophils 0.3 % (0.0-1.0); %Lymphocytes 15.2 % (21.0-51.0); %Monocytes 9.9 % (0.0-10.0); %Neutrophils 67.7 % (42.0-75.0); Hemoglobin 8.7 g/dL (14.0-18.0); Mean Corpuscular HGB CONC 33.7 g/dL (32.0-36.0); Mean Corpuscular Hemoglobin 37.8 pg (27.0-31.0); Mean Platelet Volume 8.9 fL (7.4-10.4); Platelet Count 63 thou/uL (130-400); RBC Distribution Width 13.7 % (11.5-14.5); Red Blood Cell (RBC) Count 2.31 mill/uL (4.70-6.10)
[2022-02-05 05:05] LABS: ALT (SGPT) 36 U/L (8-55); AST (SGOT) 47 U/L (5-34); Alkaline Phosphatase 73 U/L (40-110); Anion Gap 12 mmol/L (10-20); BUN (Urea Nitrogen) 55 mg/dL (8.4-25.7); Bilirubin, Total 1.7 mg/dL (0.2-1.2); Calc. Creatinine Clearance 56 mL/min (70-130); Calcium 8.3 mg/dL (7.8-10.44); Carbon Dioxide 20 mmol/L (23-31); Chloride 113 mmol/L (98-107); Globulin 2.3 g/dL (2.4-3.5); Glucose 106 mg/dL (83-110); Potassium 4.6 mmol/L (3.5-5.1); Protein, Total 5.3 g/dL (5.8-8.1); Sodium 140 mmol/L (136-145)
[2022-02-05] MEDS: Rifaximin 550 MG TAB PO SCH ×2 (09:25→19:53)
[2022-02-05] MEDS: Sodium Chloride 0.9% 1,000 ML IV SCH ×2 (09:25→19:56)
[2022-02-05] MEDS: Pantoprazole 40 MG VIAL IVP SCH ×2 (09:26→19:54)
[2022-02-05] MEDS: cefTRIAXone\\ROCEPHIN 1 GM in Sodium Chloride 0.9% 100 ML IVPB SCH (11:56)
[2022-02-05] MEDS: Octreotide Acetate 1,250 MCG in Sodium Chloride 0.9% 250 ML 250 ML IVPB SCH (19:58)
[2022-02-06 06:48] LABS: #Eosinphils 0.3 thou/uL (0.0-0.7); #Lymphocytes 0.7 thou/uL (1.20-3.40); #Monocytes 0.5 thou/uL (0.11-0.59); #Neutrophils 2.6 thou/uL (1.40-6.50); %Basophils 0.4 % (0.0-1.0); %Eosinophils 6.8 % (0.0-10.0); %Lymphocytes 17.4 % (21.0-51.0); %Monocytes 11.2 % (0.0-10.0); %Neutrophils 64.2 % (42.0-75.0); Hemoglobin 7.7 g/dL (14.0-18.0); Mean Corpuscular HGB CONC 33.5 g/dL (32.0-36.0); Mean Corpuscular Hemoglobin 37.6 pg (27.0-31.0); Mean Platelet Volume 9.1 fL (7.4-10.4); Platelet Count 56 thou/uL (130-400); RBC Distribution Width 13.9 % (11.5-14.5); Red Blood Cell (RBC) Count 2.05 mill/uL (4.70-6.10); White Blood Cell (WBC) Count 4.1 thou/uL (4.8-10.8)
[2022-02-06 06:50] LABS: Anion Gap 9 mmol/L (10-20); BUN (Urea Nitrogen) 37 mg/dL (8.4-25.7); Calc. Creatinine Clearance 67 mL/min (70-130); Calcium 7.4 mg/dL (7.8-10.44); Carbon Dioxide 19 mmol/L (23-31); Chloride 111 mmol/L (98-107); Glucose 108 mg/dL (83-110); Potassium 4.2 mmol/L (3.5-5.1); Sodium 135 mmol/L (136-145)
[2022-02-06 07:18] LABS: MDiff Complete? YES; Macrocytosis SLIGHT = 6-15 cells (100X) (0-5/hpf); Platelet Morphology Comment Appears Decreased; Polychromasia SLIGHT = 2-3 cells (100X) (0-2/hpf)
[2022-02-06] MEDS: Rifaximin 550 MG TAB PO SCH (08:14)
[2022-02-06] MEDS: Pantoprazole 40 MG VIAL IVP SCH (08:14)
[2022-02-06] MEDS: cefTRIAXone\\ROCEPHIN 1 GM in Sodium Chloride 0.9% 100 ML IVPB SCH (10:18)
[2022-02-06 16:56] VITALS: BP 105/63; TEMP 97.9
== END 2022-02-06 19:05 | disposition home or self-care (01) | DRG 432 ==
LOC: ERS 10:03 → 2NO 13:57 → T4-B 02-05 17:30
PROVIDERS: ADMIT Internal Medicine; ATTEND Internal Medicine
PROC: 06L38CZ Occlusion of Esophageal Vein with Extraluminal Device, Via Natural or Artificial Opening Endoscopic (ICD-10-PCS; principal; 2022-02-04)
DX: K74.69 Other cirrhosis of liver (principal); I85.11 Secondary esophageal varices with bleeding; I81 Portal vein thrombosis; K76.6 Portal hypertension; K72.90 Hepatic failure, unspecified without coma; Z20.822 Contact with and (suspected) exposure to COVID-19; K75.81 Nonalcoholic steatohepatitis (NASH); I10 Essential (primary) hypertension; E87.5 Hyperkalemia; D69.6 Thrombocytopenia, unspecified; E88.09 Other disorders of plasma-protein metabolism, not elsewhere classified; K31.89 Other diseases of stomach and duodenum; Z82.49 Family history of ischemic heart disease and other diseases of the circulatory system; Z79.899 Other long term (current) drug therapy; Z87.442 Personal history of urinary calculi; Z98.49 Cataract extraction status, unspecified eye; Z80.0 Family history of malignant neoplasm of digestive organs; Z79.01 Long term (current) use of anticoagulants; Z98.890 Other specified postprocedural states
CPT/HCPCS: 36415; 36416; 71045; 80048; 80053; 82105; 84484; 85014; 85018; 85025; 85049; 85610; 86850; 86900; 86901; 93005; 94760; 96374; 96375; 96376; C9113; J0696; J1815; J2354; J2405; J2704; J3490; J7050; U0003; U0005

== ENCOUNTER 2022-04-01 07:26 | Outpatient (CLI) | payer MEDICARE, BC | END 2022-04-01 07:27 | disposition home or self-care (01) | LOC: BICULT 07:26 | PROVIDERS: ATTEND Physician Assistant Medical | DX: K72.90 Hepatic failure, unspecified without coma (principal); D62 Acute posthemorrhagic anemia; I85.00 Esophageal varices without bleeding; K75.81 Nonalcoholic steatohepatitis (NASH); K74.60 Unspecified cirrhosis of liver; R16.2 Hepatomegaly with splenomegaly, not elsewhere classified; I81 Portal vein thrombosis | CPT/HCPCS: 76705 ==

== ENCOUNTER 2022-06-02 07:58 | Outpatient (CLI) | payer MEDICARE, BC ==
[2022-06-02] MEDS ORDERED: Iopamidol-370 76% 500 ML 1 ML ONE (10:37)
== END 2022-06-02 07:59 | disposition home or self-care (01) ==
LOC: BICCT 07:58
PROVIDERS: ATTEND Internal Medicine Hematology & Oncology
DX: I81 Portal vein thrombosis (principal)
CPT/HCPCS: 74170; 82565; Q9967

== ENCOUNTER 2022-10-15 08:32 | Outpatient (CLI) | payer MEDICARE, BC | END 2022-10-15 08:33 | disposition home or self-care (01) | LOC: ULT 08:32 | PROVIDERS: ATTEND Physician Assistant Medical | DX: K75.81 Nonalcoholic steatohepatitis (NASH) (principal); I81 Portal vein thrombosis; K72.90 Hepatic failure, unspecified without coma; I85.10 Secondary esophageal varices without bleeding; R16.2 Hepatomegaly with splenomegaly, not elsewhere classified; K82.8 Other specified diseases of gallbladder | CPT/HCPCS: 76705 ==

== ENCOUNTER 2023-09-30 11:45 | Emergency (ER) | payer BC, MEDICARE ==
[2023-09-30 12:45] LABS: #Monocytes 0.4 thou/uL (0.11-0.59); #Neutrophils 5.3 thou/uL (1.40-6.50); %Basophils 0.2 % (0.0-1.0); %Eosinophils 0.6 % (0.0-10.0); %Lymphocytes 6.6 % (21.0-51.0); %Monocytes 6.9 % (0.0-10.0); %Neutrophils 85.1 % (42.0-75.0); Hematocrit 33.2 % (42.0-52.0); Hemoglobin 11.6 g/dL (14.0-18.0); Mean Corpuscular HGB CONC 34.9 g/dL (32.0-36.0); Mean Corpuscular Hemoglobin 36.4 pg (27.0-31.0); Mean Corpuscular Volume 104.1 fl (78.0-98.0); Mean Platelet Volume 11.4 fL (7.4-10.4); RBC Distribution Width 15.9 % (11.5-14.5); Red Blood Cell (RBC) Count 3.19 mill/uL (4.70-6.10); White Blood Cell (WBC) Count 6.3 10x3/uL (4.8-10.8)
[2023-09-30 12:48] LABS: Platelet Count 36 10x3/uL (130-400)
[2023-09-30 13:05] LABS: ALT (SGPT) 55 U/L (8-55); AST (SGOT) 78 U/L (5-34); Albumin 3.2 g/dL (3.4-4.8); Alkaline Phosphatase 119 U/L (40-110); Anion Gap 11 mmol/L (10-20); BUN (Urea Nitrogen) 30 mg/dL (8.4-25.7); Bilirubin, Total 3.2 mg/dL (0.2-1.2); Calc. Creatinine Clearance 0 mL/min (70-130); Calcium 8.2 mg/dL (7.8-10.44); Carbon Dioxide 22 mmol/L (23-31); Chloride 109 mmol/L (98-107); Estimated GFR 67; Globulin 2.7 g/dL (2.4-3.5); Glucose 103 mg/dL (83-110); Potassium 4.1 mmol/L (3.5-5.1); Protein, Total 5.9 g/dL (5.8-8.1); Sodium 138 mmol/L (136-145)
[2023-09-30 13:10] LABS: Troponin I 0.013 ng/mL (< 0.028)
== END 2023-09-30 14:06 | disposition home or self-care (01) ==
LOC: ERS 11:45
DX: L03.116 Cellulitis of left lower limb (principal); I10 Essential (primary) hypertension; Z79.899 Other long term (current) drug therapy
CPT/HCPCS: 36415; 71045; 80053; 84484; 85025; 93005; 94760

== ENCOUNTER 2024-07-18 08:29 | Outpatient (CLI) | payer MEDICARE ==
[2024-07-18] MEDS ORDERED: Iopamidol 370 76% 100 ML VIAL ONE (10:15)
== END 2024-07-18 08:30 | disposition home or self-care (01) ==
LOC: CT 08:29
PROVIDERS: ATTEND Internal Medicine
DX: K74.60 Unspecified cirrhosis of liver (principal); K76.82 Hepatic encephalopathy; I85.10 Secondary esophageal varices without bleeding; R60.0 Localized edema; R16.1 Splenomegaly, not elsewhere classified; I81 Portal vein thrombosis; K76.6 Portal hypertension
CPT/HCPCS: 36415; 74170; 82565; Q9967